=== PATIENT | male | born 1965 | race African-American/Black ===

== ENCOUNTER 2020-10-11 17:05 | Emergency (ER) | payer OTHER ==
[~2020-10-11] VITALS: Ht 188 cm; Wt 77.3 kg
[2020-10-11] MEDS ORDERED: ASPI-728 PO (17:31)
[2020-10-11 18:45] LABS: BASOPHILS % (AUTO) 1.2 % (0.0-2.0); EOSINOPHILS % (AUTO) 6.4 % (1.0-6.0); HEMATOCRIT 42.2 % (41-53); HEMOGLOBIN 13.7 g/dL (13.5-17.5); LYMPHOCYTES # (AUTO) 1.4 K/uL (1.0-4.8); LYMPHOCYTES % (AUTO) 30.3 % (22.0-44.0); MEAN CORPUSCULAR HEMOGLOBIN 28.5 pg (26.0-34.0); MEAN CORPUSCULAR HGB CONC 32.5 G/dL (31.0-37.0); MEAN CORPUSCULAR VOLUME 88 fL (80-100); MONOCYTES # (AUTO) 0.6 K/uL (0.1-1.0); MONOCYTES % (AUTO) 11.7 % (2.0-9.0); NEUTROPHILS # (AUTO) 2.4 K/uL (1.8-7.7); NEUTROPHILS % (AUTO) 50.4 % (40.0-70.0); PLATELET COUNT (AUTO) 289 K/uL (150-450); RED BLOOD CELL COUNT(AUTO) 4.81 MIL/uL (4.50-5.90); RED CELL DISTRIBUTION WIDTH 13.4 % (11.5-14.5)
[2020-10-11 18:52] LABS: ANION GAP 7 mmol/L (8-16); CALCIUM, TOTAL 9.3 mg/dL (8.8-10.5); CARBON DIOXIDE 30 mmol/L (22-29); CHLORIDE 104 mmol/L (98-107); CREATININE 1.33 mg/dL (0.60-1.30); GLOMERULAR FILTR. RATE CALC > 60 mL/min (>60); GLUCOSE,RANDOM 78 mg/dL (70-110); POTASSIUM 5.3 mmol/L (3.5-5.1); SODIUM SERUM 141 mmol/L (136-145); UREA NITROGEN, BLOOD 12 mg/dL (7-18)
[2020-10-11 18:58] LABS: ALANINE AMINOTRANSFERASE 21 U/L (12-78); ALBUMIN 4.4 g/dL (3.4-5.0); ALKALINE PHOSPHATASE 71 U/L (46-116); ASPARTATE AMINOTRANSFERASE 18 U/L (15-37); BILIRUBIN,TOTAL 0.7 mg/dL (0.1-1.0); TOTAL PROTEIN, SERUM 8.1 g/dL (6.4-8.2)
[2020-10-11 22:51] LABS: AMPHET/METH SCREEN,URINE NEGATIVE (NEGATIVE); BARBITURATE SCREEN, URINE NEGATIVE (NEGATIVE); BENZODIAZEPINES SCREEN,URINE NEGATIVE (NEGATIVE); CANNABINOID SCREEN,URINE POSITIVE (NEGATIVE); COCAINE SCREEN,URINE NEGATIVE (NEGATIVE); METHADONE SCREEN, URINE NEGATIVE (NEGATIVE); OPIATE SCREEN,URINE NEGATIVE (NEGATIVE)
[2020-10-11 22:54] LABS: PHENCYCLIDINE SCREEN,URINE NEGATIVE (NEGATIVE)
[2020-10-11 23:40] VITALS: BP 139/87
== END 2020-10-11 23:40 | disposition home or self-care (01) ==
LOC: EMS 17:07
DX: F41.9 Anxiety disorder, unspecified (principal); R06.02 Shortness of breath; R42 Dizziness and giddiness; F12.90 Cannabis use, unspecified, uncomplicated
CPT/HCPCS: 36415; 71045; 80053; 80307; 85025; 99284; G0480

== ENCOUNTER 2021-01-26 14:24 | Emergency (ER) | payer OTHER ==
[~2021-01-26] VITALS: Ht 182.9 cm; Wt 72.7 kg
[~2021-01-26 14:24] MED LIST: ASPI-1450 PO
[2021-01-26 14:34] VITALS: BP 127/52
== END 2021-01-26 15:25 | disposition left against medical advice (07) ==
LOC: EMS 14:30
DX: R20.0 Anesthesia of skin (principal); Z53.21 Procedure and treatment not carried out due to patient leaving prior to being seen by health care provider

== ENCOUNTER 2021-01-26 15:58 | Emergency (ER) | payer OTHER ==
[~2021-01-26] VITALS: Ht 180.3 cm; Wt 72.7 kg
[2021-01-26 16:35] VITALS: BP 129/56
== END 2021-01-26 17:36 | disposition home or self-care (01) ==
LOC: EMS 15:58
DX: F12.929 Cannabis use, unspecified with intoxication, unspecified (principal); Z79.82 Long term (current) use of aspirin
CPT/HCPCS: 99281; Z7502